=== PATIENT | male | born 1965 | race African-American/Black ===

== ENCOUNTER 2021-05-04 16:40 | Emergency (ER) | payer BC, OTHER ==
[~2021-05-04] VITALS: Ht 177.8 cm; Wt 88.0 kg
--- NOTE | 2021-05-04 16:47 | NUR ---
DR. GREEN AT FOR EVAL.
[2021-05-04] MEDS ORDERED: LIDOCAINE 2% JEL UROJET 10 ML MM ONE (16:50)
--- NOTE | 2021-05-04 17:32 | NUR ---
BRITTANY [phone].
[2021-05-04] MEDS: MORPHINE SULFATE INJ 2 MG/ML DISP.SYRIN IV ONE (17:38)
[2021-05-04] MEDS: ONDANSETRON HCL/PF 4 MG/2 ML VIAL IVP ONE (17:38)
[2021-05-04 17:50] VITALS: BP 132/78
[2021-05-04 17:53] LABS: BILIRUBIN,URINE LARGE (NEGATIVE); COLOR,URINE RED (YELLOW); LEUKOCYTE ESTERASE ,URINE Large (NEGATIVE); NITRITE, URINE Positive (NEGATIVE); PROTEIN,URINE >=300 mg/dl (NEGATIVE); UGLUCOSE 100 MG/DL mg/dL (NEGATIVE); UROBILINOGEN,URINE >=8.0 EU/dL (0.2)
[2021-05-04 17:55] LABS: PH,URINE >8.5 (5.0-8.0)
[2021-05-04 18:16] LABS: BACTERIA,URINE None seen /HPF (None Seen); RBC,URINE TOO NUMEROUS TO COUN /HPF (0-2); SQUAMOUS EPITHELIAL CELL,UR None Seen /HPF (None Seen); WBC,URINE NONE SEEN /HPF (0-3)
== END 2021-05-04 17:50 | disposition home or self-care (01) ==
LOC: ER 16:43
DX: R31.9 Hematuria, unspecified (principal); G89.18 Other acute postprocedural pain; R33.9 Retention of urine, unspecified; I10 Essential (primary) hypertension; Z60.2 Problems related to living alone
CPT/HCPCS: 51702; 81001; 87086; 99284; A4217 ×2; J3490